=== PATIENT | female | born 1990 | race Caucasian/White ===

== ENCOUNTER 2018-10-23 05:45 | Emergency (ER) | payer MEDICAID ==
[~2018-10-23] VITALS: Ht 154.9 cm; Wt 78.0 kg
[2018-10-23] MEDS ORDERED: SODIUM CHLORIDE 0.9% 1,000 ML IV ONE (06:05)
[2018-10-23 06:32] LABS: CHLORIDE 107 mEq/L (98-107); HCG SCREEN NEGATIVE
[2018-10-23 06:36] LABS: ETHANOL BLOOD < 10 mg/dL
[2018-10-23 06:37] LABS: BASOPHILS % 0.8 % (0.0-2.0); EOSINOPHILS % 1.8 % (0.0-5.0); HEMATOCRIT. 44.3 % (36.0-48.0); HEMOGLOBIN. 14.8 g/dL (12.0-16.0); LYMPHOCYTES % 24.4 % (20.0-50.0); MEAN CORPUSCULAR HEMOGLOBIN 27.5 pg (28.0-32.0); MEAN CORPUSCULAR VOLUME 82.4 fL (81.0-99.0); MEAN PLATELET VOLUME 9.9 fl (7.4-10.4); MONOCYTES % 6.4 % (2.0-8.0); NEUTROPHILS % 66.6 % (40.0-76.0); PLATELET 217 x1000/uL (130-400); RED BLOOD CELL COUNT 5.38 mill/uL (4.2-5.4); RED CELL DISTRIBUTION WIDTH 14.3 % (11.6-14.6)
[2018-10-23 06:39] LABS: CREATINE KINASE 67 IU/L (26-192)
[2018-10-23 06:42] LABS: CREATINE KINASE MB FRACTION < 1.0 ng/mL (0.5-3.6)
[2018-10-23] MEDS ORDERED: MECLIZINE 25MG TABLET PO ONE (06:45)
[2018-10-23 08:14] LABS: CLARITY URINE CLEAR (CLEAR); COLOR URINE YELLOW (YELLOW); KETONES URINE NEGATIVE (NEGATIVE); LEUKOCYTE ESTERASE URINE NEGATIVE (NEGATIVE); NITRITE URINE NEGATIVE (NEGATIVE); OCCULT BLOOD URINE NEGATIVE (NEGATIVE); PH URINE 6.5 (4.5-8.0); PROTEIN URINE NEGATIVE (NEGATIVE); SPECIFIC GRAVITY URINE 1.003 (1.005-1.030); UROBILINOGEN URINE 0.2 E.U./dL (0.2-1.0)
[2018-10-23 08:30] LABS: *COCAINE SCREEN URINE NEGATIVE (NEGATIVE); METHADONE URINE SCREEN NEGATIVE (NEGATIVE); OPIATES URINE SCREEN NEGATIVE (NEGATIVE)
[2018-10-23 08:31] LABS: *AMPHETAMINES SCREEN URINE NEGATIVE (NEGATIVE); *BARBITURATES SCREEN URINE NEGATIVE (NEGATIVE); *BENZODIAZEPINES SCREEN URINE NEGATIVE (NEGATIVE); CANNABINOID URINE SCREEN NEGATIVE (NEGATIVE); PHENCYCLIDINE URINE SCREEN NEGATIVE (NEGATIVE)
[2018-10-23 09:25] VITALS: BP 120/80
== END 2018-10-23 09:37 | disposition home or self-care (01) ==
LOC: ER 05:45
DX: R42 Dizziness and giddiness (principal); R07.89 Other chest pain; J45.909 Unspecified asthma, uncomplicated
CPT/HCPCS: 36415; 71045; 80053; 80305; 80320; 81003; 81025; 82550; 82553; 83690; 83880; 84484; 84703; 85025; 93005; 96360; 99284; J7030; J8597; G0480

== ENCOUNTER 2018-10-28 15:16 | Emergency (ER) | payer MEDICAID ==
[~2018-10-28] VITALS: Ht 165.1 cm; Wt 81.0 kg
[2018-10-28] MEDS ORDERED: SODIUM CHLORIDE 0.9% 1,000 ML IV ONE (16:18)
[2018-10-28 16:37] LABS: BASOPHILS % 0.6 % (0.0-2.0); HEMATOCRIT. 39.6 % (36.0-48.0); HEMOGLOBIN. 13.3 g/dL (12.0-16.0); LYMPHOCYTES % 14.1 % (20.0-50.0); MEAN CORPUSCULAR HEMOGLOBIN 27.6 pg (28.0-32.0); MEAN CORPUSCULAR VOLUME 82.4 fL (81.0-99.0); MEAN PLATELET VOLUME 10.1 fl (7.4-10.4); MONOCYTES % 5.9 % (2.0-8.0); NEUTROPHILS % 78.4 % (40.0-76.0); PLATELET 212 x1000/uL (130-400); RED BLOOD CELL COUNT 4.81 mill/uL (4.2-5.4); RED CELL DISTRIBUTION WIDTH 14.2 % (11.6-14.6)
[2018-10-28 16:41] LABS: CHLORIDE 109 mEq/L (98-107)
[2018-10-28 18:00] VITALS: BP 109/65
== END 2018-10-28 18:07 | disposition home or self-care (01) ==
LOC: ER 15:27
DX: R07.89 Other chest pain (principal); E11.9 Type 2 diabetes mellitus without complications; J45.909 Unspecified asthma, uncomplicated
CPT/HCPCS: 36415; 71045; 80053; 81025; 84484; 85025; 93005; 96360; 99284; J7030

== ENCOUNTER 2018-11-11 18:45 | Emergency (ER) | payer MEDICAID ==
[~2018-11-11] VITALS: Ht 165.1 cm; Wt 76.0 kg
[2018-11-11] MEDS ORDERED: FAMOTIDINE 20MG/2ML VIAL IV ONE (19:15)
[2018-11-11 19:40] LABS: BASOPHILS % 0.9 % (0.0-2.0); EOSINOPHILS % 1.8 % (0.0-5.0); HEMATOCRIT. 39.3 % (36.0-48.0); HEMOGLOBIN. 13.5 g/dL (12.0-16.0); LYMPHOCYTES % 20.1 % (20.0-50.0); MEAN CORPUSCULAR VOLUME 81.4 fL (81.0-99.0); MEAN PLATELET VOLUME 9.6 fl (7.4-10.4); MONOCYTES % 5.6 % (2.0-8.0); NEUTROPHILS % 71.6 % (40.0-76.0); PLATELET 227 x1000/uL (130-400); RED BLOOD CELL COUNT 4.84 mill/uL (4.2-5.4); RED CELL DISTRIBUTION WIDTH 13.8 % (11.6-14.6)
[2018-11-11 19:47] LABS: CHLORIDE 107 mEq/L (98-107)
[2018-11-11 19:48] LABS: PARTIAL THROMBOPLASTIN TIME 28.2 sec (23.4-31.0); PROTHROMBIN TIME 10.4 sec (9.6-11.0)
[2018-11-11 20:01] LABS: HCG SCREEN NEGATIVE
[2018-11-11 20:33] LABS: CLARITY URINE CLOUDY (CLEAR); COLOR URINE YELLOW (YELLOW); KETONES URINE NEGATIVE (NEGATIVE); LEUKOCYTE ESTERASE URINE 2+ (NEGATIVE); NITRITE URINE NEGATIVE (NEGATIVE); OCCULT BLOOD URINE 3+ (NEGATIVE); PH URINE 8.5 (4.5-8.0); PROTEIN URINE NEGATIVE (NEGATIVE); SPECIFIC GRAVITY URINE 1.007 (1.005-1.030); UROBILINOGEN URINE 0.2 E.U./dL (0.2-1.0)
[2018-11-11 23:15] VITALS: BP 106/60
== END 2018-11-11 23:18 | disposition home or self-care (01) ==
LOC: ER 18:45
DX: R10.9 Unspecified abdominal pain (principal); R07.9 Chest pain, unspecified; N39.0 Urinary tract infection, site not specified; E11.9 Type 2 diabetes mellitus without complications; J45.909 Unspecified asthma, uncomplicated; Z88.5 Allergy status to narcotic agent; Z88.6 Allergy status to analgesic agent; Z87.11 Personal history of peptic ulcer disease; Z90.49 Acquired absence of other specified parts of digestive tract
CPT/HCPCS: 36415; 71045; 80053; 81003; 81025; 83690; 84703; 85025; 85610; 85730; 93005; 99284; J3490; Z7610; 96374

== ENCOUNTER 2018-11-14 23:28 | Emergency (ER) | payer MEDICAID ==
[~2018-11-14] VITALS: Ht 154.9 cm; Wt 75.0 kg
[2018-11-15] MEDS ORDERED: LORAZEPAM 1MG TABLET PO SCH (03:15)
[2018-11-15 03:27] LABS: CLARITY URINE CLOUDY (CLEAR); COLOR URINE YELLOW (YELLOW); KETONES URINE NEGATIVE (NEGATIVE); LEUKOCYTE ESTERASE URINE 2+ (NEGATIVE); NITRITE URINE NEGATIVE (NEGATIVE); OCCULT BLOOD URINE 3+ (NEGATIVE); PH URINE 8.5 (4.5-8.0); PROTEIN URINE NEGATIVE (NEGATIVE); SPECIFIC GRAVITY URINE 1.008 (1.005-1.030); UROBILINOGEN URINE 0.2 E.U./dL (0.2-1.0)
[2018-11-15 03:37] VITALS: BP 98/66
== END 2018-11-15 03:42 | disposition left against medical advice (07) ==
LOC: ER 23:28
DX: F41.9 Anxiety disorder, unspecified (principal); N39.0 Urinary tract infection, site not specified; J45.909 Unspecified asthma, uncomplicated; Z88.6 Allergy status to analgesic agent; Z88.5 Allergy status to narcotic agent; Z90.49 Acquired absence of other specified parts of digestive tract
CPT/HCPCS: 81025; 99283

== ENCOUNTER 2018-11-24 21:21 | Emergency (ER) | payer MEDICAID ==
[~2018-11-24] VITALS: Ht 154.9 cm; Wt 75.0 kg
[2018-11-24 22:46] LABS: BASOPHILS % 0.9 % (0.0-2.0); EOSINOPHILS % 2.3 % (0.0-5.0); HEMATOCRIT. 42.2 % (36.0-48.0); HEMOGLOBIN. 14.4 g/dL (12.0-16.0); LYMPHOCYTES % 29.5 % (20.0-50.0); MEAN CORPUSCULAR HEMOGLOBIN 27.8 pg (28.0-32.0); MEAN CORPUSCULAR VOLUME 81.3 fL (81.0-99.0); MEAN PLATELET VOLUME 9.6 fl (7.4-10.4); MONOCYTES % 7.1 % (2.0-8.0); NEUTROPHILS % 60.2 % (40.0-76.0); PLATELET 233 x1000/uL (130-400); RED BLOOD CELL COUNT 5.19 mill/uL (4.2-5.4); RED CELL DISTRIBUTION WIDTH 13.7 % (11.6-14.6)
[2018-11-24 22:52] LABS: CHLORIDE 108 mEq/L (98-107)
[2018-11-24] MEDS ORDERED: ACETAMINOPHEN 500MG TABLET PO ONE (23:15)
[2018-11-24 23:59] VITALS: BP 91/55
== END 2018-11-25 00:07 | disposition home or self-care (01) ==
LOC: ER 21:21
DX: R07.89 Other chest pain (principal); J45.909 Unspecified asthma, uncomplicated; Z88.5 Allergy status to narcotic agent; Z88.6 Allergy status to analgesic agent
CPT/HCPCS: 36415; 71045; 81025; 84484; 93005; 99284

== ENCOUNTER 2019-05-21 22:54 | Emergency (ER) | payer MEDICAID ==
[~2019-05-21] VITALS: Ht 154.9 cm; Wt 76.9 kg
[2019-05-22 03:40] LABS: BASOPHILS % 0.7 % (0.0-2.0); EOSINOPHILS % 2.1 % (0.0-5.0); HEMATOCRIT. 42.1 % (36.0-48.0); HEMOGLOBIN. 14.2 g/dL (12.0-16.0); LYMPHOCYTES % 32.1 % (20.0-50.0); MEAN CORPUSCULAR HEMOGLOBIN 27.6 pg (28.0-32.0); MEAN PLATELET VOLUME 9.8 fl (7.4-10.4); MONOCYTES % 7.1 % (2.0-8.0); PLATELET 247 x1000/uL (130-400); RED BLOOD CELL COUNT 5.13 mill/uL (4.2-5.4); RED CELL DISTRIBUTION WIDTH 13.2 % (11.6-14.6)
[2019-05-22 03:46] LABS: CHLORIDE 106 mEq/L (98-107)
[2019-05-22 03:49] LABS: CLARITY URINE CLOUDY (CLEAR); COLOR URINE YELLOW (YELLOW); KETONES URINE NEGATIVE (NEGATIVE); LEUKOCYTE ESTERASE URINE 2+ (NEGATIVE); NITRITE URINE NEGATIVE (NEGATIVE); OCCULT BLOOD URINE NEGATIVE (NEGATIVE); PROTEIN URINE NEGATIVE (NEGATIVE); UROBILINOGEN URINE 0.2 E.U./dL (0.2-1.0)
[2019-05-22 03:55] LABS: ETHANOL BLOOD < 10 mg/dL
[2019-05-22 06:53] VITALS: BP 105/58
== END 2019-05-22 07:05 | disposition home or self-care (01) ==
LOC: ER 23:43
DX: R42 Dizziness and giddiness (principal); R00.2 Palpitations; N39.0 Urinary tract infection, site not specified; H60.90 Unspecified otitis externa, unspecified ear; J45.909 Unspecified asthma, uncomplicated; Z90.49 Acquired absence of other specified parts of digestive tract; Z88.6 Allergy status to analgesic agent; Z88.5 Allergy status to narcotic agent
CPT/HCPCS: 36415; 80053; 80320; 81003; 81025; 82962; 85025; 93005; 99284; Z7610; G0480

== ENCOUNTER 2021-07-12 19:34 | Emergency (ER) | payer MEDICAID ==
[~2021-07-12] VITALS: Ht 154.9 cm; Wt 80.0 kg
[2021-07-12 23:34] LABS: BASOPHILS % 0.7 % (0.0-2.0); EOSINOPHILS % 1.9 % (0.0-5.0); HEMATOCRIT. 39.6 % (36.0-48.0); HEMOGLOBIN. 13.2 g/dL (12.0-16.0); LYMPHOCYTES % 24.2 % (20.0-50.0); MEAN CORPUSCULAR HEMOGLOBIN 26.7 pg (28.0-32.0); MEAN CORPUSCULAR VOLUME 80.5 fL (81.0-99.0); NEUTROPHILS % 67.2 % (40.0-76.0); PLATELET 229 x1000/uL (130-400); RED BLOOD CELL COUNT 4.92 mill/uL (4.2-5.4); RED CELL DISTRIBUTION WIDTH 14.8 % (11.6-14.6)
[2021-07-12 23:38] LABS: CHLORIDE 106 mEq/L (98-107)
[2021-07-13 00:02] LABS: HCG SCREEN NEGATIVE
[2021-07-13] MEDS ORDERED: IBUPROFEN 600MG TABLET PO ONE (00:15)
[2021-07-13 00:40] VITALS: BP 102/67
== END 2021-07-13 00:42 | disposition home or self-care (01) ==
LOC: ER 19:34
DX: R07.89 Other chest pain (principal); J45.909 Unspecified asthma, uncomplicated; Z88.6 Allergy status to analgesic agent; Z90.49 Acquired absence of other specified parts of digestive tract
CPT/HCPCS: 36415; 71045; 80053; 84703; 85025; 93005; 99285

== ENCOUNTER 2021-09-25 16:45 | Emergency (ER) | payer MEDICAID ==
[~2021-09-25] VITALS: Ht 154.9 cm; Wt 76.0 kg
[2021-09-25] MEDS ORDERED: TETANUS, DIPHTHERIA, PERTUSSIS VAC/PF 0.5ML (>10YR OLD) IM ONE (19:45)
[2021-09-25] MEDS ORDERED: LIDOCAINE HCL/EPINEPHRINE 1%-EPI 1:100,000 30 ML VIAL INFIL ONE (19:45)
[2021-09-25] MEDS ORDERED: LIDOCAINE HCL/EPINEPHRINE 1%-EPI 1:100,000 10 ML VIAL INFIL NR (20:00)
[2021-09-25 20:08] VITALS: BP 131/86
== END 2021-09-25 20:10 | disposition home or self-care (01) ==
LOC: ER 16:45
DX: S51.812A Laceration without foreign body of left forearm, initial encounter (principal); J45.909 Unspecified asthma, uncomplicated; Z88.6 Allergy status to analgesic agent; Z90.49 Acquired absence of other specified parts of digestive tract; W25.XXXA Contact with sharp glass, initial encounter; Y93.89 Activity, other specified; Y92.89 Other specified places as the place of occurrence of the external cause; Y99.8 Other external cause status
CPT/HCPCS: 12002; 90471; 90715; 99283

== ENCOUNTER 2021-10-06 23:00 | Emergency (ER) | payer MEDICAID ==
[~2021-10-06] VITALS: Ht 154.9 cm; Wt 74.0 kg
[2021-10-07 01:20] VITALS: BP 102/59
== END 2021-10-07 00:25 | disposition home or self-care (01) ==
LOC: ER 23:00
DX: S51.812D Laceration without foreign body of left forearm, subsequent encounter (principal); X58.XXXD Exposure to other specified factors, subsequent encounter; J45.909 Unspecified asthma, uncomplicated; Z90.49 Acquired absence of other specified parts of digestive tract; Z88.6 Allergy status to analgesic agent
CPT/HCPCS: 99281

== ENCOUNTER 2022-05-02 02:56 | Emergency (ER) | payer MEDICAID ==
[~2022-05-02] VITALS: Ht 154.9 cm; Wt 76.5 kg
[2022-05-02] MEDS ORDERED: ACETAMINOPHEN WITH CODEINE 300/30MG TABLET PO STA (04:09)
[2022-05-02] MEDS ORDERED: ONDANSETRON 4MG ODT PO STA (04:09)
[2022-05-02 04:18] VITALS: BP 114/47
[2022-05-02 05:10] LABS: BASOPHILS % 0.7 % (0.0-2.0); EOSINOPHILS % 2.7 % (0.0-5.0); HEMATOCRIT. 40.8 % (36.0-48.0); HEMOGLOBIN. 13.4 g/dL (12.0-16.0); LYMPHOCYTES % 25.9 % (20.0-50.0); MEAN CORPUSCULAR HEMOGLOBIN 26.8 pg (28.0-32.0); MEAN CORPUSCULAR VOLUME 81.4 fL (81.0-99.0); MEAN PLATELET VOLUME 9.6 fl (7.4-10.4); NEUTROPHILS % 63.7 % (40.0-76.0); PLATELET 227 x1000/uL (130-400); RED BLOOD CELL COUNT 5.01 mill/uL (4.2-5.4); RED CELL DISTRIBUTION WIDTH 14.4 % (11.6-14.6)
[2022-05-02 05:19] LABS: CHLORIDE 106 mEq/L (98-107)
[2022-05-02] MEDS ORDERED: PANT40SU MT (05:37)
== END 2022-05-02 06:10 | disposition home or self-care (01) ==
LOC: ER 02:56
DX: R10.13 Epigastric pain (principal); J45.909 Unspecified asthma, uncomplicated; Z88.6 Allergy status to analgesic agent; Z90.49 Acquired absence of other specified parts of digestive tract
CPT/HCPCS: 36415; 80053; 85025; 93005; 99284; Q0162

== ENCOUNTER 2022-05-31 15:34 | Emergency (ER) | payer MEDICAID ==
[~2022-05-31] VITALS: Ht 167.6 cm; Wt 73.0 kg
[~2022-05-31 15:34] MED LIST: PANT40SU MT
[2022-05-31] MEDS ORDERED: LANS30CA55 MT (19:41)
[2022-05-31] MEDS ORDERED: CLAR-44 MT (19:41)
[2022-05-31] MEDS ORDERED: AMOX-494 MT (19:41)
[2022-05-31 19:45] VITALS: BP 112/78
== END 2022-05-31 20:47 | disposition home or self-care (01) ==
LOC: ER 15:34
DX: R10.13 Epigastric pain (principal); R53.1 Weakness; R42 Dizziness and giddiness; J45.909 Unspecified asthma, uncomplicated; Z90.49 Acquired absence of other specified parts of digestive tract
CPT/HCPCS: 81025; 99283

== ENCOUNTER 2023-06-13 18:57 | Emergency (ER) | payer MEDICAID ==
[~2023-06-13] VITALS: Ht 162.6 cm; Wt 91.0 kg
[~2023-06-13 18:57] MED LIST changes: +AMOX-494 MT; +CLAR-44 MT; +LANS30CA55 MT
[2023-06-13 19:07] VITALS: BP 102/66; PULSE 72; RESP 18; TEMP 98.8; O2SAT 99
[2023-06-13] MEDS ORDERED: MAGNESIUM/ALUMINUM HYDROXIDE/SIMETHICONE 30ML UDC PO ONE (20:45)
[2023-06-13] MEDS ORDERED: FLUC150T46 PO (20:53)
[2023-06-13] MEDS ORDERED: NYST15CR37 PO (20:53)
[2023-06-13 21:01] LABS: BASOPHILS % 0.6 % (0.0-2.0); EOSINOPHILS % 1.8 % (0.0-5.0); HEMATOCRIT. 39.3 % (36.0-48.0); HEMOGLOBIN. 13.3 g/dL (12.0-16.0); LYMPHOCYTES % 30.9 % (20.0-50.0); MEAN CORPUSCULAR HEMOGLOBIN 27.7 pg (28.0-32.0); MEAN CORPUSCULAR VOLUME 81.5 fL (81.0-99.0); MEAN PLATELET VOLUME 9.2 fl (7.4-10.4); MONOCYTES % 7.5 % (2.0-8.0); NEUTROPHILS % 59.2 % (40.0-76.0); PLATELET 229 x1000/uL (130-400); RED BLOOD CELL COUNT 4.82 mill/uL (4.2-5.4); RED CELL DISTRIBUTION WIDTH 13.8 % (11.6-14.6); WHITE BLOOD COUNT 9.7 x1000/uL (4.5-11.0)
[2023-06-13 21:24] LABS: CHLORIDE 109 mEq/L (98-107); INDEX HEMOLYSI 1 (1-3); INDEX ICTERIC 1 (1-4); INDEX LIPEMIC 1 (1-3); POTASSIUM 3.5 mEq/L (3.5-5.1); SODIUM 139 mEq/L (136-145)
[2023-06-13 21:32] LABS: ALANINE AMINOTRANSFERASE 20 IU/L (13-61); ALBUMIN 3.4 g/dL (3.4-5.0); ASPARTATE AMINOTRANSFERASE 9 IU/L (15-37); BILIRUBIN TOTAL 0.7 mg/dL (0.1-1.0); CALCIUM 9.3 mg/dL (8.5-10.1); CARBON DIOXIDE 27 mEq/L (21-32); CREATININE 0.5 mg/dL (0.6-1.3); GLUCOSE 89 mg/dL (70-105); PROTEIN TOTAL 7.5 g/dL (6.0-8.3); UREA NITROGEN BLOOD 5 mg/dL (7-21)
[2023-06-13] MEDS ORDERED: FLUT9.9S BOTHNSTRLS (22:09)
== END 2023-06-13 22:16 | disposition home or self-care (01) ==
LOC: ER 18:57
DX: B37.31 Acute candidiasis of vulva and vagina (principal); J45.909 Unspecified asthma, uncomplicated; Z88.6 Allergy status to analgesic agent; Z90.49 Acquired absence of other specified parts of digestive tract
CPT/HCPCS: 36415; 80053; 85025; 99283

== ENCOUNTER 2023-06-30 18:46 | Emergency (ER) | payer MEDICAID ==
[~2023-06-30] VITALS: Ht 167.6 cm; Wt 74.0 kg
[~2023-06-30 18:46] MED LIST changes: +FLUC150T46 PO; +FLUT9.9S BOTHNSTRLS; +NYST15CR37 PO
[2023-06-30] MEDS ORDERED: TOPUD MT (19:06)
[2023-06-30] MEDS ORDERED: TAM75 MT (19:06)
[2023-06-30 19:10] VITALS: BP 124/82; PULSE 81; RESP 18; TEMP 99.3; O2SAT 99
== END 2023-06-30 19:15 | disposition home or self-care (01) ==
LOC: ER 18:46
DX: J10.1 Influenza due to other identified influenza virus with other respiratory manifestations (principal); U07.1 COVID-19; J45.909 Unspecified asthma, uncomplicated
CPT/HCPCS: 99283

== ENCOUNTER 2023-07-09 14:14 | Emergency (ER) | payer MEDICAID ==
[~2023-07-09] VITALS: Ht 154.9 cm; Wt 72.6 kg
[~2023-07-09 14:14] MED LIST changes: +TAM75 MT; +TOPUD MT
[2023-07-09 14:28] VITALS: BP 111/59; PULSE 79; RESP 16; TEMP 98.7; O2SAT 99
== END 2023-07-09 16:56 | disposition left against medical advice (07) ==
LOC: ER 14:14
DX: Z53.21 Procedure and treatment not carried out due to patient leaving prior to being seen by health care provider (principal)
CPT/HCPCS: 99281

== ENCOUNTER 2023-08-11 17:27 | Emergency (ER) | payer MEDICAID ==
[~2023-08-11] VITALS: Ht 167.6 cm; Wt 77.0 kg
[2023-08-11 17:32] VITALS: TEMP 98.1; O2SAT 99
[2023-08-11] MEDS ORDERED: EPIN0.3P3 IM (20:12)
[2023-08-11] MEDS ORDERED: FAMOTIDINE 20MG TABLET PO ONE (20:15)
[2023-08-11] MEDS ORDERED: DEXAMETHASONE 10 MG/ML VIAL IM ONE (20:15)
[2023-08-11 21:35] VITALS: BP 117/73; PULSE 60; RESP 18
== END 2023-08-11 21:37 | disposition home or self-care (01) ==
LOC: ER 17:36
DX: T78.40XA Allergy, unspecified, initial encounter (principal); L50.9 Urticaria, unspecified; R09.89 Other specified symptoms and signs involving the circulatory and respiratory systems; J45.909 Unspecified asthma, uncomplicated; Z79.899 Other long term (current) drug therapy; X58.XXXA Exposure to other specified factors, initial encounter
CPT/HCPCS: 96372; 99283; J1100; Z7610

== ENCOUNTER 2023-10-17 03:15 | Emergency (ER) | payer MEDICAID ==
[~2023-10-17] VITALS: Ht 154.9 cm; Wt 72.0 kg
[~2023-10-17 03:15] MED LIST changes: +EPIN0.3P3 IM
[2023-10-17 03:39] VITALS: BP 99/56; PULSE 80; RESP 17; TEMP 98.2; O2SAT 99
== END 2023-10-17 04:12 | disposition left against medical advice (07) ==
LOC: ER 03:20
DX: H92.01 Otalgia, right ear (principal); Z53.21 Procedure and treatment not carried out due to patient leaving prior to being seen by health care provider
CPT/HCPCS: 99281

== ENCOUNTER 2023-11-23 10:56 | Emergency (ER) | payer MEDICAID ==
[~2023-11-23] VITALS: Ht 154.9 cm; Wt 73.0 kg
[2023-11-23 10:59] VITALS: O2SAT 99
[2023-11-23] MEDS: CEFTRIAXONE SODIUM 500MG VIAL IM ONE (11:20)
[2023-11-23 11:22] LABS: CLARITY URINE CLOUDY (CLEAR); COLOR URINE YELLOW (YELLOW); GLUCOSE URINE NEGATIVE (NEGATIVE); KETONES URINE NEGATIVE (NEGATIVE); LEUKOCYTE ESTERASE URINE 3+ (NEGATIVE); NITRITE URINE NEGATIVE (NEGATIVE); OCCULT BLOOD URINE NEGATIVE (NEGATIVE); PH URINE 5.5 (4.5-8.0); PROTEIN URINE NEGATIVE (NEGATIVE); SPECIFIC GRAVITY URINE 1.017 (1.005-1.030); UROBILINOGEN URINE 0.2 E.U./dL (0.2-1.0)
[2023-11-23 11:30] VITALS: BP 112/66; PULSE 69; RESP 19; TEMP 98.5
[2023-11-23 11:38] LABS: BACTERIA URINE 2+; SQUAMOUS EPITHELIAL CELL URINE 2+ /lpf (RARE/1+); YEAST URINE NONE SEEN
[2023-11-23] MEDS ORDERED: DOXY-244 MT (11:52)
[2023-11-23] MEDS ORDERED: METR-167 MT (11:52)
[2023-11-23] MEDS ORDERED: CLIN-194 MT (12:38)
[2023-11-25 19:10] LABS: CHLAMYDIA TRACHOMATIS NAA Positive (Negative); NEISSERIA GONORRHOEAE NAA Negative (Negative)
== END 2023-11-23 14:58 | disposition home or self-care (01) ==
LOC: ER 10:56
DX: N73.9 Female pelvic inflammatory disease, unspecified (principal); J45.909 Unspecified asthma, uncomplicated; Z90.49 Acquired absence of other specified parts of digestive tract; Z79.899 Other long term (current) drug therapy
CPT/HCPCS: 87491; 87591; 81003; 81025; 96372; 99283; J0696; Z7610

== ENCOUNTER 2023-11-24 14:39 | Emergency (ER) | payer MEDICAID ==
[~2023-11-24] VITALS: Ht 154.9 cm; Wt 73.0 kg
[~2023-11-24 14:39] MED LIST changes: +CLIN-194 MT; +DOXY-244 MT
[2023-11-24 14:41] VITALS: BP 101/59; PULSE 68; RESP 16; TEMP 98.7; O2SAT 99
[2023-11-24 17:22] LABS: BASOPHILS % 0.6 % (0.0-2.0); EOSINOPHILS % 1.6 % (0.0-5.0); HEMATOCRIT. 41.2 % (36.0-48.0); HEMOGLOBIN. 13.8 g/dL (12.0-16.0); LYMPHOCYTES % 23.1 % (20.0-50.0); MEAN CORPUSCULAR HEMOGLOBIN 28.1 pg (28.0-32.0); MEAN CORPUSCULAR HGB CONC 33.4 g/dL (31.0-37.0); MEAN CORPUSCULAR VOLUME 84.2 fL (81.0-99.0); MEAN PLATELET VOLUME 9.2 fl (7.4-10.4); MONOCYTES % 5.4 % (2.0-8.0); NEUTROPHILS % 69.3 % (40.0-76.0); PLATELET 256 x1000/uL (130-400); RED BLOOD CELL COUNT 4.89 mill/uL (4.2-5.4); RED CELL DISTRIBUTION WIDTH 13.4 % (11.6-14.6); WHITE BLOOD COUNT 9.9 x1000/uL (4.5-11.0)
[2023-11-24 17:30] LABS: CHLORIDE 106 mEq/L (98-107); POTASSIUM 3.9 mEq/L (3.5-5.1); SODIUM 136 mEq/L (136-145)
[2023-11-24 17:31] LABS: CARBON DIOXIDE 24 mEq/L (21-32)
[2023-11-24 17:32] LABS: CALCIUM 8.2 mg/dL (8.7-10.4)
[2023-11-24 17:34] LABS: HCG SCREEN NEGATIVE
[2023-11-24 17:36] LABS: CREATININE 0.6 mg/dL (0.6-1.0); GLUCOSE 91 mg/dL (70-105); UREA NITROGEN BLOOD 5 mg/dL (9-23)
[2023-11-24 17:38] LABS: ALANINE AMINOTRANSFERASE 15 IU/L (10-49); ASPARTATE AMINOTRANSFERASE 24 IU/L (<34)
[2023-11-24 17:39] LABS: BILIRUBIN TOTAL 0.4 mg/dL (0.1-1.0); PROTEIN TOTAL 6.8 g/dL (6.0-8.3)
== END 2023-11-24 17:03 | disposition home or self-care (01) ==
LOC: ER 14:39
DX: R07.89 Other chest pain (principal); R42 Dizziness and giddiness; J45.909 Unspecified asthma, uncomplicated; Z90.49 Acquired absence of other specified parts of digestive tract; Z88.8 Allergy status to other drugs, medicaments and biological substances; Z88.6 Allergy status to analgesic agent; Z88.5 Allergy status to narcotic agent
CPT/HCPCS: 36415; 71045; 80053; 84703; 85025; 93005; 99285

== ENCOUNTER 2024-01-09 20:32 | Emergency (ER) | payer MEDICAID ==
[~2024-01-09] VITALS: Ht 154.9 cm; Wt 76.0 kg
[2024-01-09 20:54] VITALS: BP 101/57; PULSE 78; RESP 16; TEMP 98.6; O2SAT 100
[2024-01-09] MEDS ORDERED: AZITHROMYCIN 250 MG TABLET PO SCH (22:00)
[2024-01-09 22:22] LABS: CLARITY URINE CLEAR (CLEAR); COLOR URINE YELLOW (YELLOW); GLUCOSE URINE NEGATIVE (NEGATIVE); KETONES URINE NEGATIVE (NEGATIVE); LEUKOCYTE ESTERASE URINE NEGATIVE (NEGATIVE); NITRITE URINE NEGATIVE (NEGATIVE); OCCULT BLOOD URINE NEGATIVE (NEGATIVE); PH URINE 6.5 (4.5-8.0); PROTEIN URINE NEGATIVE (NEGATIVE); SPECIFIC GRAVITY URINE 1.011 (1.005-1.030); UROBILINOGEN URINE 0.2 E.U./dL (0.2-1.0)
[2024-01-09] MEDS: AZITHROMYCIN 500 MG TABLET PO NR (22:41)
[2024-01-09] MEDS ORDERED: AMOX1TAB16 MT (22:58)
== END 2024-01-09 23:42 | disposition home or self-care (01) ==
LOC: ER 20:32
DX: N76.0 Acute vaginitis (principal); A74.9 Chlamydial infection, unspecified; J45.909 Unspecified asthma, uncomplicated; Z90.49 Acquired absence of other specified parts of digestive tract
CPT/HCPCS: 81003; 81025; 87210; 87491; 87591; 99284

== ENCOUNTER 2024-01-23 10:28 | Emergency (ER) | payer MEDICAID ==
[~2024-01-23] VITALS: Ht 154.9 cm; Wt 74.0 kg
[~2024-01-23 10:28] MED LIST changes: +AMOX1TAB16 MT
[2024-01-23 10:32] VITALS: TEMP 98; O2SAT 99
[2024-01-23] MEDS: ACETAMINOPHEN 500MG TABLET PO ONE (12:00)
[2024-01-23 12:33] LABS: CLARITY URINE TURBID (CLEAR); COLOR URINE YELLOW (YELLOW); GLUCOSE URINE NEGATIVE (NEGATIVE); KETONES URINE NEGATIVE (NEGATIVE); LEUKOCYTE ESTERASE URINE 2+ (NEGATIVE); NITRITE URINE NEGATIVE (NEGATIVE); OCCULT BLOOD URINE NEGATIVE (NEGATIVE); PROTEIN URINE NEGATIVE (NEGATIVE); SPECIFIC GRAVITY URINE 1.019 (1.005-1.030); UROBILINOGEN URINE 0.2 E.U./dL (0.2-1.0)
[2024-01-23 12:56] LABS: BACTERIA URINE 3+; RBC URINE 0-2 /hpf (0-2); SQUAMOUS EPITHELIAL CELL URINE 2+ /lpf (RARE/1+); YEAST URINE NONE SEEN
[2024-01-23] MEDS ORDERED: ACET-2708 MT (13:12)
[2024-01-23] MEDS ORDERED: NITR-87 MT (13:12)
[2024-01-23 14:30] VITALS: BP 112/64; PULSE 59; RESP 14
== END 2024-01-23 14:31 | disposition home or self-care (01) ==
LOC: ER 10:28
DX: N39.0 Urinary tract infection, site not specified (principal); J45.909 Unspecified asthma, uncomplicated; Z88.1 Allergy status to other antibiotic agents; Z88.6 Allergy status to analgesic agent; Z79.899 Other long term (current) drug therapy; Z88.5 Allergy status to narcotic agent; Z90.49 Acquired absence of other specified parts of digestive tract
CPT/HCPCS: 76830; 76856; 81003; 81025; 99284

== ENCOUNTER 2024-01-26 02:25 | Emergency (ER) | payer MEDICAID ==
[~2024-01-26] VITALS: Ht 154.9 cm; Wt 75.0 kg
[~2024-01-26 02:25] MED LIST changes: +ACET-2708 MT; +NITR-87 MT
[2024-01-26 03:01] VITALS: O2SAT 99
[2024-01-26 03:20] LABS: CLARITY URINE CLEAR (CLEAR); COLOR URINE YELLOW (YELLOW); GLUCOSE URINE NEGATIVE (NEGATIVE); KETONES URINE NEGATIVE (NEGATIVE); LEUKOCYTE ESTERASE URINE NEGATIVE (NEGATIVE); NITRITE URINE NEGATIVE (NEGATIVE); OCCULT BLOOD URINE NEGATIVE (NEGATIVE); PROTEIN URINE NEGATIVE (NEGATIVE); SPECIFIC GRAVITY URINE 1.003 (1.005-1.030); UROBILINOGEN URINE 0.2 E.U./dL (0.2-1.0)
[2024-01-26] MEDS: CEFTRIAXONE SODIUM 500MG VIAL IM NR (03:45)
[2024-01-26 05:20] VITALS: BP 135/66; PULSE 76; RESP 18; TEMP 98.5
[2024-01-28 17:07] LABS: CHLAMYDIA TRACHOMATIS NAA Negative (Negative); NEISSERIA GONORRHOEAE NAA Negative (Negative)
== END 2024-01-26 05:32 | disposition home or self-care (01) ==
LOC: ER 02:25
DX: Z11.3 Encounter for screening for infections with a predominantly sexual mode of transmission (principal); Z90.49 Acquired absence of other specified parts of digestive tract; Z88.8 Allergy status to other drugs, medicaments and biological substances
CPT/HCPCS: 99284; 86592; 87491; 87591; 81003; 87210; 36415; 96372; J0696

== ENCOUNTER 2024-01-28 10:40 | Emergency (ER) | payer MEDICAID ==
[~2024-01-28] VITALS: Ht 162.6 cm; Wt 81.0 kg
[2024-01-28 10:55] VITALS: O2SAT 100
[2024-01-28] MEDS ORDERED: AMOX1TAB16 MT (14:49)
[2024-01-28] MEDS ORDERED: OFLO5DRO4 EACH EAR (14:49)
[2024-01-28] MEDS ORDERED: CARB15DR63 EACH EAR (14:49)
[2024-01-28 15:18] VITALS: BP 124/74; PULSE 71; RESP 18; TEMP 98.4
== END 2024-01-28 15:19 | disposition home or self-care (01) ==
LOC: ER 11:44
DX: H61.21 Impacted cerumen, right ear (principal); H60.91 Unspecified otitis externa, right ear; Z88.6 Allergy status to analgesic agent; Z88.1 Allergy status to other antibiotic agents; Z88.5 Allergy status to narcotic agent; Z79.899 Other long term (current) drug therapy
CPT/HCPCS: 81025; 70480; 99284; Z7610

== ENCOUNTER 2024-03-14 12:19 | Emergency (ER) | payer MEDICAID ==
[~2024-03-14] VITALS: Ht 157.5 cm; Wt 73.0 kg
[~2024-03-14 12:19] MED LIST changes: +CARB15DR63 EACH EAR; +OFLO5DRO4 EACH EAR
[2024-03-14 12:26] VITALS: BP 113/65; PULSE 72; RESP 20; TEMP 98.6; O2SAT 97
[2024-03-14 13:39] LABS: CLARITY URINE CLEAR (CLEAR); COLOR URINE YELLOW (YELLOW); GLUCOSE URINE NEGATIVE (NEGATIVE); KETONES URINE NEGATIVE (NEGATIVE); LEUKOCYTE ESTERASE URINE NEGATIVE (NEGATIVE); NITRITE URINE NEGATIVE (NEGATIVE); OCCULT BLOOD URINE NEGATIVE (NEGATIVE); PROTEIN URINE NEGATIVE (NEGATIVE); SPECIFIC GRAVITY URINE 1.005 (1.005-1.030); UROBILINOGEN URINE 0.2 E.U./dL (0.2-1.0)
[2024-03-14 13:55] LABS: BASOPHILS % 0.8 % (0.0-2.0); EOSINOPHILS % 1.3 % (0.0-5.0); HEMOGLOBIN. 13.2 g/dL (12.0-16.0); LYMPHOCYTES % 19.6 % (20.0-50.0); MEAN CORPUSCULAR HEMOGLOBIN 27.2 pg (28.0-32.0); MEAN CORPUSCULAR VOLUME 82.5 fL (81.0-99.0); MEAN PLATELET VOLUME 9.3 fl (7.4-10.4); MONOCYTES % 6.8 % (2.0-8.0); NEUTROPHILS % 71.5 % (40.0-76.0); PLATELET 245 x1000/uL (130-400); RED BLOOD CELL COUNT 4.85 mill/uL (4.2-5.4); RED CELL DISTRIBUTION WIDTH 13.3 % (11.6-14.6); WHITE BLOOD COUNT 8.2 x1000/uL (4.5-11.0)
[2024-03-14 14:02] LABS: CHLORIDE 105 mEq/L (98-107); POTASSIUM 3.9 mEq/L (3.5-5.1); SODIUM 137 mEq/L (136-145)
[2024-03-14 14:03] LABS: CALCIUM 9.2 mg/dL (8.7-10.4); CARBON DIOXIDE 27 mEq/L (21-32)
[2024-03-14 14:08] LABS: CREATININE 0.5 mg/dL (0.6-1.0); GLUCOSE 96 mg/dL (70-105); UREA NITROGEN BLOOD 6 mg/dL (9-23)
[2024-03-14 14:25] LABS: TROPONIN I HIGH SENSITIVITY < 4 ng/L (3.0-34)
== END 2024-03-14 16:04 | disposition home or self-care (01) ==
LOC: ER 12:19
DX: R00.2 Palpitations (principal); R20.2 Paresthesia of skin; J45.909 Unspecified asthma, uncomplicated; Z90.49 Acquired absence of other specified parts of digestive tract; Z88.8 Allergy status to other drugs, medicaments and biological substances; Z88.6 Allergy status to analgesic agent; Z79.899 Other long term (current) drug therapy
CPT/HCPCS: 36415; 71045; 80048; 81003; 81025; 83880; 84484; 85025; 93005; 99284; 99285

== ENCOUNTER 2024-04-01 23:35 | Emergency (ER) | payer MEDICAID ==
[~2024-04-01] VITALS: Ht 154.9 cm; Wt 75.0 kg
[2024-04-01 23:39] VITALS: TEMP 98.4; O2SAT 99
[2024-04-02] MEDS ORDERED: OFLO5DRO4 LEFT EAR (00:07)
[2024-04-02] MEDS: MECLIZINE 12.5MG TABLET PO ONE (00:36)
[2024-04-02 00:40] VITALS: BP 128/52; PULSE 62; RESP 16; O2SAT 99
== END 2024-04-02 00:41 | disposition home or self-care (01) ==
LOC: ER 23:35
DX: H60.91 Unspecified otitis externa, right ear (principal); R42 Dizziness and giddiness; J45.909 Unspecified asthma, uncomplicated; Z90.49 Acquired absence of other specified parts of digestive tract; Z79.899 Other long term (current) drug therapy
CPT/HCPCS: 99283; J8597

== ENCOUNTER 2024-04-15 04:59 | Emergency (ER) | payer MEDICAID ==
[~2024-04-15] VITALS: Ht 154.9 cm; Wt 81.0 kg
[~2024-04-15 04:59] MED LIST changes: +OFLO5DRO4 LEFT EAR
[2024-04-15 05:17] VITALS: BP 100/64; TEMP 98.2; O2SAT 99
[2024-04-15 05:18] VITALS: PULSE 68; RESP 18; O2SAT 100
[2024-04-15 07:00] LABS: BASOPHILS % 0.8 % (0.0-2.0); EOSINOPHILS % 2.3 % (0.0-5.0); HCG SCREEN NEGATIVE; HEMATOCRIT. 39.9 % (36.0-48.0); HEMOGLOBIN. 13.4 g/dL (12.0-16.0); LYMPHOCYTES % 22.9 % (20.0-50.0); MEAN CORPUSCULAR HEMOGLOBIN 27.3 pg (28.0-32.0); MEAN CORPUSCULAR HGB CONC 33.6 g/dL (31.0-37.0); MEAN CORPUSCULAR VOLUME 81.2 fL (81.0-99.0); MEAN PLATELET VOLUME 9.4 fl (7.4-10.4); MONOCYTES % 6.1 % (2.0-8.0); NEUTROPHILS % 67.9 % (40.0-76.0); PLATELET 256 x1000/uL (130-400); RED BLOOD CELL COUNT 4.91 mill/uL (4.2-5.4); RED CELL DISTRIBUTION WIDTH 13.9 % (11.6-14.6); WHITE BLOOD COUNT 8.3 x1000/uL (4.5-11.0)
[2024-04-15 07:01] LABS: CHLORIDE 106 mEq/L (98-107); POTASSIUM 3.9 mEq/L (3.5-5.1); SODIUM 137 mEq/L (136-145)
[2024-04-15 07:02] LABS: CALCIUM 9.1 mg/dL (8.7-10.4); CARBON DIOXIDE 25 mEq/L (21-32)
[2024-04-15 07:07] LABS: CREATININE 0.6 mg/dL (0.6-1.0); GLUCOSE 95 mg/dL (70-105); UREA NITROGEN BLOOD 6 mg/dL (9-23)
== END 2024-04-15 08:11 | disposition left against medical advice (07) ==
LOC: ER 04:59 → CANBEDREQ 08:10 → ER 08:11
DX: R07.89 Other chest pain (principal); J45.909 Unspecified asthma, uncomplicated; Z79.899 Other long term (current) drug therapy; Z88.6 Allergy status to analgesic agent
CPT/HCPCS: 36415; 71045; 80048; 83880; 84703; 85025; 93005; 99285

== ENCOUNTER 2024-04-22 14:54 | Emergency (ER) | payer MEDICAID ==
[~2024-04-22] VITALS: Ht 154.9 cm; Wt 73.0 kg
[2024-04-22 15:00] VITALS: O2SAT 100
[2024-04-22 15:05] VITALS: BP 106/44; PULSE 69; TEMP 98.5; O2SAT 98
[2024-04-22 15:49] LABS: CLARITY URINE CLEAR (CLEAR); COLOR URINE YELLOW (YELLOW); GLUCOSE URINE NEGATIVE (NEGATIVE); KETONES URINE NEGATIVE (NEGATIVE); LEUKOCYTE ESTERASE URINE NEGATIVE (NEGATIVE); NITRITE URINE NEGATIVE (NEGATIVE); OCCULT BLOOD URINE NEGATIVE (NEGATIVE); PH URINE 5.5 (4.5-8.0); PROTEIN URINE NEGATIVE (NEGATIVE); SPECIFIC GRAVITY URINE 1.025 (1.005-1.030); UROBILINOGEN URINE 0.2 E.U./dL (0.2-1.0)
[2024-04-22 16:15] LABS: BASOPHILS % 0.7 % (0.0-2.0); EOSINOPHILS % 2.4 % (0.0-5.0); HEMATOCRIT. 40.8 % (36.0-48.0); HEMOGLOBIN. 13.6 g/dL (12.0-16.0); LYMPHOCYTES % 26.2 % (20.0-50.0); MEAN CORPUSCULAR HEMOGLOBIN 27.4 pg (28.0-32.0); MEAN CORPUSCULAR HGB CONC 33.4 g/dL (31.0-37.0); MEAN CORPUSCULAR VOLUME 82.1 fL (81.0-99.0); MEAN PLATELET VOLUME 9.5 fl (7.4-10.4); NEUTROPHILS % 63.7 % (40.0-76.0); PLATELET 264 x1000/uL (130-400); RED BLOOD CELL COUNT 4.97 mill/uL (4.2-5.4); RED CELL DISTRIBUTION WIDTH 13.9 % (11.6-14.6); WHITE BLOOD COUNT 7.5 x1000/uL (4.5-11.0)
[2024-04-22 16:19] LABS: HCG SCREEN NEGATIVE
[2024-04-22 16:22] LABS: CARBON DIOXIDE 26 mEq/L (21-32); CHLORIDE 105 mEq/L (98-107); POTASSIUM 3.7 mEq/L (3.5-5.1); SODIUM 137 mEq/L (136-145)
[2024-04-22 16:23] LABS: CALCIUM 9.4 mg/dL (8.7-10.4)
[2024-04-22 16:27] LABS: CREATININE 0.6 mg/dL (0.6-1.0)
[2024-04-22 16:28] LABS: GLUCOSE 93 mg/dL (70-105)
[2024-04-22 16:29] LABS: ALANINE AMINOTRANSFERASE 41 IU/L (10-49); ALBUMIN 4.3 g/dL (3.2-4.8); ASPARTATE AMINOTRANSFERASE 31 IU/L (<34)
[2024-04-22 16:30] LABS: BILIRUBIN DIRECT < 0.1 mg/dL (<=3.0); BILIRUBIN TOTAL 0.2 mg/dL (0.1-1.0); PROTEIN TOTAL 7.3 g/dL (6.0-8.3); UREA NITROGEN BLOOD < 5 mg/dL (9-23)
[2024-04-22] MEDS: MAGNESIUM/ALUMINUM HYDROXIDE/SIMETHICONE 30ML UDC PO ONE (17:37)
[2024-04-22] MEDS: FAMOTIDINE 20MG TABLET PO ONE (17:37)
[2024-04-22] MEDS ORDERED: MAG355OR21 MT (17:55)
[2024-04-22] MEDS ORDERED: FAMO-135 MT (17:55)
== END 2024-04-22 18:40 | disposition home or self-care (01) ==
LOC: ER 14:54
DX: K29.70 Gastritis, unspecified, without bleeding (principal); J45.909 Unspecified asthma, uncomplicated; Z79.899 Other long term (current) drug therapy; Z88.6 Allergy status to analgesic agent
CPT/HCPCS: 36415; 80048; 80076; 81003; 84703; 85025; 99283

== ENCOUNTER 2024-04-28 03:21 | Emergency (ER) | payer MEDICAID ==
[~2024-04-28] VITALS: Ht 154.9 cm; Wt 76.0 kg
[~2024-04-28 03:21] MED LIST changes: +FAMO-135 MT; +MAG355OR21 MT
[2024-04-28 03:32] VITALS: O2SAT 100
[2024-04-28 03:52] LABS: CLARITY URINE CLEAR (CLEAR); COLOR URINE YELLOW (YELLOW); GLUCOSE URINE NEGATIVE (NEGATIVE); KETONES URINE NEGATIVE (NEGATIVE); LEUKOCYTE ESTERASE URINE NEGATIVE (NEGATIVE); NITRITE URINE NEGATIVE (NEGATIVE); OCCULT BLOOD URINE NEGATIVE (NEGATIVE); PH URINE 6.5 (4.5-8.0); PROTEIN URINE NEGATIVE (NEGATIVE); SPECIFIC GRAVITY URINE 1.005 (1.005-1.030); UROBILINOGEN URINE 0.2 E.U./dL (0.2-1.0)
[2024-04-28 03:59] LABS: BASOPHILS % 0.6 % (0.0-2.0); EOSINOPHILS % 2.1 % (0.0-5.0); HEMOGLOBIN. 13.4 g/dL (12.0-16.0); LYMPHOCYTES % 24.3 % (20.0-50.0); MEAN CORPUSCULAR HEMOGLOBIN 27.1 pg (28.0-32.0); MEAN CORPUSCULAR HGB CONC 33.5 g/dL (31.0-37.0); MEAN CORPUSCULAR VOLUME 80.8 fL (81.0-99.0); MONOCYTES % 6.6 % (2.0-8.0); NEUTROPHILS % 66.4 % (40.0-76.0); PLATELET 251 x1000/uL (130-400); RED BLOOD CELL COUNT 4.95 mill/uL (4.2-5.4); RED CELL DISTRIBUTION WIDTH 13.5 % (11.6-14.6)
[2024-04-28 04:05] LABS: CHLORIDE 107 mEq/L (98-107); POTASSIUM 3.6 mEq/L (3.5-5.1); SODIUM 139 mEq/L (136-145)
[2024-04-28 04:06] LABS: CALCIUM 9.5 mg/dL (8.7-10.4); CARBON DIOXIDE 26 mEq/L (21-32)
[2024-04-28 04:11] LABS: CREATININE 0.6 mg/dL (0.6-1.0); GLUCOSE 93 mg/dL (70-105)
[2024-04-28 04:12] LABS: UREA NITROGEN BLOOD 6 mg/dL (9-23)
[2024-04-28 04:13] LABS: ALANINE AMINOTRANSFERASE 38 IU/L (10-49); ALBUMIN 4.3 g/dL (3.2-4.8); ASPARTATE AMINOTRANSFERASE 26 IU/L (<34)
[2024-04-28 04:14] LABS: BILIRUBIN TOTAL 0.3 mg/dL (0.1-1.0); PROTEIN TOTAL 7.1 g/dL (6.0-8.3)
[2024-04-28 04:51] LABS: BILIRUBIN DIRECT < 0.1 mg/dL (<=3.0)
[2024-04-28] MEDS ORDERED: ACETAMINOPHEN 325MG TABLET PO ONE (05:00)
[2024-04-28] MEDS: ONDANSETRON HCL 4MG TABLET PO ONE (05:00)
[2024-04-28] MEDS ORDERED: OMEPRAZOLE 20MG CAPSULE EXTENDED RELEASE PO ONE (05:00)
[2024-04-28] MEDS ORDERED: MAGNESIUM/ALUMINUM HYDROXIDE/SIMETHICONE 30ML UDC PO ONE (05:00)
[2024-04-28] MEDS ORDERED: ONDANSETRON HCL 4MG TABLET PO NR (05:45)
[2024-04-28] MEDS: PANTOPRAZOLE 40MG DR TABLET PO NR (06:05)
[2024-04-28] MEDS: ACETAMINOPHEN 325MG TABLET PO NR (06:05)
[2024-04-28] MEDS: MAGNESIUM/ALUMINUM HYDROXIDE/SIMETHICONE 30ML UDC PO NR (06:06)
[2024-04-28] MEDS ORDERED: ACET-2708 MT (06:06)
[2024-04-28] MEDS ORDERED: MAG355OR21 MT (06:06)
[2024-04-28] MEDS ORDERED: OMEP40CA20 MT (06:06)
[2024-04-28] MEDS ORDERED: ONDA4TAB50 MT (06:06)
[2024-04-28 06:30] VITALS: BP 108/66; PULSE 75; RESP 18; TEMP 36.78072; O2SAT 100
== END 2024-04-28 06:30 | disposition home or self-care (01) ==
LOC: ER 03:21
DX: R10.10 Upper abdominal pain, unspecified (principal); J45.909 Unspecified asthma, uncomplicated; Z91.148 Patient's other noncompliance with medication regimen for other reason; Z00.00 Encounter for general adult medical examination without abnormal findings; Z79.899 Other long term (current) drug therapy; Z88.6 Allergy status to analgesic agent; Z88.8 Allergy status to other drugs, medicaments and biological substances; Z88.5 Allergy status to narcotic agent; Z98.890 Other specified postprocedural states
CPT/HCPCS: 36415; 76705; 80048; 80076; 81003; 81025; 85025; 99284; Q0162

== ENCOUNTER 2024-05-18 17:56 | Emergency (ER) | payer MEDICAID ==
[~2024-05-18] VITALS: Ht 154.9 cm; Wt 76.0 kg
[~2024-05-18 17:56] MED LIST changes: +OMEP40CA20 MT; +ONDA4TAB50 MT
[2024-05-18 18:06] VITALS: O2SAT 99
[2024-05-18] MEDS ORDERED: TOPUD MT (19:41)
[2024-05-18] MEDS ORDERED: OFLO5DRO4 EACH EAR (19:41)
[2024-05-18 19:52] VITALS: BP 112/68; PULSE 84; RESP 18; TEMP 37.11408; O2SAT 99
[2024-05-18 20:10] VITALS: TEMP 98.8
[2024-05-18] MEDS: ACETAMINOPHEN 500MG TABLET PO ONE (20:10)
== END 2024-05-18 20:12 | disposition home or self-care (01) ==
LOC: ER 17:56
DX: B34.9 Viral infection, unspecified (principal); J45.909 Unspecified asthma, uncomplicated; Z90.49 Acquired absence of other specified parts of digestive tract; Z88.6 Allergy status to analgesic agent; Z88.5 Allergy status to narcotic agent; Z88.1 Allergy status to other antibiotic agents; Z79.899 Other long term (current) drug therapy
CPT/HCPCS: 99283

== ENCOUNTER 2024-05-21 15:54 | Emergency (ER) | payer MEDICAID ==
[~2024-05-21] VITALS: Ht 154.9 cm; Wt 76.2 kg
[2024-05-21 16:11] VITALS: O2SAT 98
[2024-05-21] MEDS: ACETAMINOPHEN 325MG TABLET PO STA (21:21)
[2024-05-21] MEDS ORDERED: D-ME473S50 PO (22:22)
[2024-05-21] MEDS ORDERED: ALBU18HF2 IH (22:22)
[2024-05-21] MEDS ORDERED: AMOX-494 MT (22:22)
[2024-05-21] MEDS ORDERED: ACET-2708 PO (22:22)
[2024-05-21 23:00] VITALS: BP 122/71; PULSE 80; RESP 16; TEMP 37.00296; O2SAT 100
== END 2024-05-22 | disposition home or self-care (01) ==
LOC: ER 15:54
DX: H66.92 Otitis media, unspecified, left ear (principal); J20.9 Acute bronchitis, unspecified; J45.909 Unspecified asthma, uncomplicated; Z88.1 Allergy status to other antibiotic agents; Z88.5 Allergy status to narcotic agent; Z88.6 Allergy status to analgesic agent; Z79.899 Other long term (current) drug therapy; Z90.49 Acquired absence of other specified parts of digestive tract
CPT/HCPCS: 71045; 87070; 87430; 87804; 99284

== ENCOUNTER 2024-07-22 09:02 | Emergency (ER) | payer MEDICAID ==
[~2024-07-22] VITALS: Ht 157.5 cm; Wt 70.0 kg
[~2024-07-22 09:02] MED LIST changes: +ACET-2708 PO; +ALBU18HF2 IH; +D-ME473S50 PO
[2024-07-22 09:16] VITALS: BP 111/62; TEMP 98.4; O2SAT 95
[2024-07-22 09:20] VITALS: PULSE 69; RESP 18; O2SAT 96
[2024-07-22] MEDS ORDERED: ACETAMINOPHEN 325MG TABLET PO ONE (09:45)
== END 2024-07-22 13:03 | disposition home or self-care (01) ==
LOC: ER 09:02
DX: M54.12 Radiculopathy, cervical region (principal); E78.00 Pure hypercholesterolemia, unspecified; J45.909 Unspecified asthma, uncomplicated; Z88.6 Allergy status to analgesic agent; Z88.1 Allergy status to other antibiotic agents; Z88.5 Allergy status to narcotic agent; Z79.899 Other long term (current) drug therapy; Z90.49 Acquired absence of other specified parts of digestive tract
CPT/HCPCS: 99284

== ENCOUNTER 2024-07-28 09:43 | Emergency (ER) | payer MEDICAID ==
[~2024-07-28] VITALS: Ht 154.9 cm; Wt 77.0 kg
[2024-07-28 09:55] VITALS: BP 129/71; RESP 16; TEMP 98.6; O2SAT 99
[2024-07-28 09:59] VITALS: PULSE 83; O2SAT 99
[2024-07-28] MEDS ORDERED: FLUT9.9S BOTHNSTRLS (10:24)
[2024-07-28] MEDS ORDERED: NEOM10DR11 RIGHT EAR (10:24)
[2024-07-28] MEDS ORDERED: MECL-217 MT (10:24)
== END 2024-07-28 10:40 | disposition home or self-care (01) ==
LOC: ER 09:43
DX: H92.01 Otalgia, right ear (principal); R42 Dizziness and giddiness; R07.0 Pain in throat; E78.00 Pure hypercholesterolemia, unspecified; J45.909 Unspecified asthma, uncomplicated; Z88.5 Allergy status to narcotic agent; Z88.6 Allergy status to analgesic agent; Z88.1 Allergy status to other antibiotic agents; Z90.49 Acquired absence of other specified parts of digestive tract; Z79.899 Other long term (current) drug therapy
CPT/HCPCS: 99283

== ENCOUNTER 2024-08-30 23:51 | Emergency (ER) | payer MEDICAID ==
[~2024-08-30] VITALS: Ht 154.9 cm; Wt 76.0 kg
[~2024-08-30 23:51] MED LIST changes: +MECL-217 MT; +NEOM10DR11 RIGHT EAR
[2024-08-31 00:08] VITALS: BP 106/48; PULSE 72; RESP 16; TEMP 36.9; O2SAT 100
[2024-08-31 01:18] LABS: CHLORIDE 106 mEq/L (98-107); POTASSIUM 3.5 mEq/L (3.5-5.1); SODIUM 138 mEq/L (136-145)
[2024-08-31 01:19] LABS: CALCIUM 9.6 mg/dL (8.7-10.4); CARBON DIOXIDE 25 mEq/L (21-32)
[2024-08-31 01:21] LABS: BASOPHILS % 0.8 % (0.0-2.0); EOSINOPHILS % 1.9 % (0.0-5.0); HEMATOCRIT. 39.3 % (36.0-48.0); HEMOGLOBIN. 13.2 g/dL (12.0-16.0); LYMPHOCYTES % 28.6 % (20.0-50.0); MEAN CORPUSCULAR HEMOGLOBIN 27.2 pg (28.0-32.0); MEAN CORPUSCULAR HGB CONC 33.7 g/dL (31.0-37.0); MEAN CORPUSCULAR VOLUME 80.9 fL (81.0-99.0); MEAN PLATELET VOLUME 9.5 fl (7.4-10.4); MONOCYTES % 6.4 % (2.0-8.0); NEUTROPHILS % 62.3 % (40.0-76.0); PLATELET 250 x1000/uL (130-400); RED BLOOD CELL COUNT 4.86 mill/uL (4.2-5.4); RED CELL DISTRIBUTION WIDTH 13.9 % (11.6-14.6); WHITE BLOOD COUNT 9.5 x1000/uL (4.5-11.0)
[2024-08-31 01:24] LABS: CREATININE 0.6 mg/dL (0.6-1.0); GLUCOSE 90 mg/dL (70-105); UREA NITROGEN BLOOD 10 mg/dL (9-23)
[2024-08-31 01:26] LABS: ALANINE AMINOTRANSFERASE 25 IU/L (10-49); ALBUMIN 4.2 g/dL (3.2-4.8); ASPARTATE AMINOTRANSFERASE 19 IU/L (<34)
[2024-08-31 01:27] LABS: BILIRUBIN TOTAL 0.3 mg/dL (0.1-1.0); PROTEIN TOTAL 6.9 g/dL (6.0-8.3)
[2024-08-31 01:30] LABS: BILIRUBIN DIRECT < 0.1 mg/dL (<=3.0)
== END 2024-08-31 05:16 | disposition left against medical advice (07) ==
LOC: ER 23:51
DX: R10.9 Unspecified abdominal pain (principal); J45.909 Unspecified asthma, uncomplicated; K21.9 Gastro-esophageal reflux disease without esophagitis; E78.00 Pure hypercholesterolemia, unspecified; Z90.49 Acquired absence of other specified parts of digestive tract; Z53.21 Procedure and treatment not carried out due to patient leaving prior to being seen by health care provider
CPT/HCPCS: 36415; 80048; 80076; 85025

== ENCOUNTER 2024-09-02 18:42 | Emergency (ER) | payer MEDICAID ==
[~2024-09-02] VITALS: Ht 154.9 cm; Wt 79.0 kg
[2024-09-02 18:47] VITALS: TEMP 36.7; O2SAT 100
[2024-09-02 20:33] LABS: BASOPHILS % 0.5 % (0.0-2.0); EOSINOPHILS % 1.8 % (0.0-5.0); HEMATOCRIT. 40.9 % (36.0-48.0); HEMOGLOBIN. 13.6 g/dL (12.0-16.0); MEAN CORPUSCULAR HEMOGLOBIN 27.1 pg (28.0-32.0); MEAN CORPUSCULAR HGB CONC 33.3 g/dL (31.0-37.0); MEAN CORPUSCULAR VOLUME 81.5 fL (81.0-99.0); MEAN PLATELET VOLUME 9.2 fl (7.4-10.4); MONOCYTES % 5.6 % (2.0-8.0); NEUTROPHILS % 65.1 % (40.0-76.0); PLATELET 249 x1000/uL (130-400); RED BLOOD CELL COUNT 5.02 mill/uL (4.2-5.4); RED CELL DISTRIBUTION WIDTH 13.9 % (11.6-14.6); WHITE BLOOD COUNT 8.6 x1000/uL (4.5-11.0)
[2024-09-02 20:39] LABS: CHLORIDE 105 mEq/L (98-107); POTASSIUM 3.9 mEq/L (3.5-5.1); SODIUM 140 mEq/L (136-145)
[2024-09-02 20:40] LABS: CALCIUM 9.3 mg/dL (8.7-10.4); CARBON DIOXIDE 24 mEq/L (21-32)
[2024-09-02 20:45] LABS: CREATININE 0.6 mg/dL (0.6-1.0); GLUCOSE 97 mg/dL (70-105); HCG SCREEN NEGATIVE
[2024-09-02 20:46] LABS: UREA NITROGEN BLOOD 7 mg/dL (9-23)
[2024-09-02 20:47] LABS: ALANINE AMINOTRANSFERASE 24 IU/L (10-49); ALBUMIN 4.1 g/dL (3.2-4.8); ASPARTATE AMINOTRANSFERASE 20 IU/L (<34)
[2024-09-02 20:48] LABS: BILIRUBIN TOTAL 0.3 mg/dL (0.1-1.0); PROTEIN TOTAL 7.2 g/dL (6.0-8.3)
[2024-09-02 21:00] VITALS: TEMP 98.1
[2024-09-02 21:00] LABS: BILIRUBIN DIRECT < 0.1 mg/dL (<=3.0)
[2024-09-02] MEDS: ACETAMINOPHEN 325MG TABLET PO ONE (21:00)
[2024-09-02] MEDS: ONDANSETRON HCL 4MG TABLET PO ONE (21:00)
[2024-09-02 23:24] LABS: CLARITY URINE CLOUDY (CLEAR); COLOR URINE YELLOW (YELLOW); GLUCOSE URINE NEGATIVE (NEGATIVE); KETONES URINE NEGATIVE (NEGATIVE); LEUKOCYTE ESTERASE URINE 2+ (NEGATIVE); NITRITE URINE NEGATIVE (NEGATIVE); OCCULT BLOOD URINE NEGATIVE (NEGATIVE); PROTEIN URINE NEGATIVE (NEGATIVE); SPECIFIC GRAVITY URINE 1.022 (1.005-1.030); UROBILINOGEN URINE 0.2 E.U./dL (0.2-1.0)
[2024-09-02] MEDS ORDERED: MAG-135 MT (23:49)
[2024-09-02 23:57] LABS: SQUAMOUS EPITHELIAL CELL URINE 2+ /lpf (RARE/1+)
[2024-09-03] LABS: BACTERIA URINE 1+; RBC URINE 0-2 /hpf (0-2)
[2024-09-03 00:26] VITALS: BP 104/68; PULSE 67; RESP 16; O2SAT 98
[2024-09-03] MEDS: MAGNESIUM/ALUMINUM HYDROXIDE/SIMETHICONE 30ML UDC PO ONE (00:26)
== END 2024-09-03 00:28 | disposition home or self-care (01) ==
LOC: ER 18:42
DX: K21.9 Gastro-esophageal reflux disease without esophagitis (principal); K27.9 Peptic ulcer, site unspecified, unspecified as acute or chronic, without hemorrhage or perforation; E78.00 Pure hypercholesterolemia, unspecified; J45.909 Unspecified asthma, uncomplicated; Z79.899 Other long term (current) drug therapy; Z88.1 Allergy status to other antibiotic agents; Z88.5 Allergy status to narcotic agent; Z88.6 Allergy status to analgesic agent; Z90.49 Acquired absence of other specified parts of digestive tract
CPT/HCPCS: 99284; 76705; 80076; 80048; 81003; 84703; 83690; 85025; 87086; 36415; 76857; Q0162

== ENCOUNTER 2025-04-02 21:51 | Emergency (ER) | payer MEDICAID ==
[~2025-04-02] VITALS: Ht 154.9 cm; Wt 82.1 kg
[~2025-04-02 21:51] MED LIST changes: +MAG-135 MT; +NYST15CR31 PO; -NYST15CR37 PO
[2025-04-02 22:02] VITALS: O2SAT 99
[2025-04-02] MEDS ORDERED: NEOM10SO7 EACH EAR (23:02)
[2025-04-02 23:20] VITALS: BP 103/73; PULSE 78; RESP 15; TEMP 36.7; O2SAT 98
== END 2025-04-02 23:22 | disposition home or self-care (01) ==
LOC: ER 21:51
DX: H60.93 Unspecified otitis externa, bilateral (principal); E78.00 Pure hypercholesterolemia, unspecified; J45.909 Unspecified asthma, uncomplicated; Z79.899 Other long term (current) drug therapy; Z90.49 Acquired absence of other specified parts of digestive tract; Z88.6 Allergy status to analgesic agent; Z88.5 Allergy status to narcotic agent; Z88.1 Allergy status to other antibiotic agents
CPT/HCPCS: 99282; 99283

== ENCOUNTER 2025-04-12 22:17 | Emergency (ER) | payer MEDICAID ==
[~2025-04-12] VITALS: Ht 154.9 cm; Wt 80.0 kg
[~2025-04-12 22:17] MED LIST changes: +NEOM10SO7 EACH EAR
[2025-04-12 22:22] VITALS: O2SAT 100
[2025-04-12 23:00] LABS: CLARITY URINE CLEAR (CLEAR); COLOR URINE YELLOW (YELLOW); GLUCOSE URINE NEGATIVE (NEGATIVE); KETONES URINE TRACE (NEGATIVE); LEUKOCYTE ESTERASE URINE NEGATIVE (NEGATIVE); NITRITE URINE NEGATIVE (NEGATIVE); OCCULT BLOOD URINE NEGATIVE (NEGATIVE); PH URINE 6.5 (4.5-8.0); PROTEIN URINE NEGATIVE (NEGATIVE); SPECIFIC GRAVITY URINE 1.025 (1.005-1.030); UROBILINOGEN URINE 0.2 E.U./dL (0.2-1.0)
[2025-04-12 23:56] LABS: BASOPHILS % 1.0 % (0.0-2.0); EOSINOPHILS % 2.2 % (0.0-5.0); HEMATOCRIT. 38.8 % (36.0-48.0); HEMOGLOBIN. 12.9 g/dL (12.0-16.0); LYMPHOCYTES % 31.1 % (20.0-50.0); MEAN PLATELET VOLUME 9.0 fl (7.4-10.4); MONOCYTES % 6.7 % (2.0-8.0); NEUTROPHILS % 59.0 % (40.0-76.0); PLATELET 258 x1000/uL (130-400); RED BLOOD CELL COUNT 4.86 mill/uL (4.2-5.4); RED CELL DISTRIBUTION WIDTH 13.9 % (11.6-14.6)
[2025-04-13 00:09] LABS: CREATININE 0.7 mg/dL (0.6-1.0)
[2025-04-13 00:10] LABS: TROPONIN I HIGH SENSITIVITY < 4 ng/L (3.0-34); UREA NITROGEN BLOOD 5 mg/dL (9-23)
[2025-04-13 00:47] VITALS: BP 108/58; PULSE 57; RESP 16; TEMP 36.8; O2SAT 100
== END 2025-04-13 01:01 | disposition home or self-care (01) ==
LOC: ER 22:17
DX: R07.89 Other chest pain (principal); E78.00 Pure hypercholesterolemia, unspecified; J45.909 Unspecified asthma, uncomplicated; Z79.899 Other long term (current) drug therapy; Z87.19 Personal history of other diseases of the digestive system; Z88.1 Allergy status to other antibiotic agents; Z88.5 Allergy status to narcotic agent; Z88.6 Allergy status to analgesic agent; Z90.49 Acquired absence of other specified parts of digestive tract
CPT/HCPCS: 36415; 71045; 80048; 81003; 81025; 84484; 85025; 93005; 99285

== ENCOUNTER 2025-04-23 06:49 | Emergency (ER) | payer MEDICAID ==
[~2025-04-23] VITALS: Ht 154.9 cm; Wt 82.0 kg
[2025-04-23 06:55] VITALS: O2SAT 100
[2025-04-23] MEDS: SODIUM CHLORIDE 0.9% 1,000 ML IV ONE (08:00)
[2025-04-23] MEDS: ONDANSETRON HCL 4MG/2ML INJ IV ONE (08:00)
[2025-04-23 08:10] LABS: BASOPHILS % 0.9 % (0.0-2.0); EOSINOPHILS % 2.5 % (0.0-5.0); HEMATOCRIT. 41.0 % (36.0-48.0); HEMOGLOBIN. 13.6 g/dL (12.0-16.0); LYMPHOCYTES % 25.5 % (20.0-50.0); MEAN PLATELET VOLUME 9.2 fl (7.4-10.4); MONOCYTES % 6.9 % (2.0-8.0); NEUTROPHILS % 64.2 % (40.0-76.0); PLATELET 270 x1000/uL (130-400); RED BLOOD CELL COUNT 5.15 mill/uL (4.2-5.4); RED CELL DISTRIBUTION WIDTH 14.4 % (11.6-14.6)
[2025-04-23 08:28] LABS: HCG SCREEN NEGATIVE
[2025-04-23 08:29] LABS: CREATININE 0.5 mg/dL (0.6-1.0); UREA NITROGEN BLOOD 5 mg/dL (9-23)
[2025-04-23 08:31] LABS: ASPARTATE AMINOTRANSFERASE 23 IU/L (<34); BILIRUBIN DIRECT < 0.1 mg/dL (<=3.0)
[2025-04-23 08:32] LABS: BILIRUBIN TOTAL 0.3 mg/dL (0.1-1.0); PROTEIN TOTAL 7.2 g/dL (6.0-8.3)
[2025-04-23] MEDS: ACETAMINOPHEN 500MG TABLET PO ONE (09:05)
[2025-04-23] MEDS ORDERED: MECL-217 MT (09:24)
[2025-04-23] MEDS ORDERED: TOPUD MT (09:24)
[2025-04-23 09:36] VITALS: BP 108/55; PULSE 64; RESP 16; TEMP 36.8; O2SAT 99
== END 2025-04-23 09:40 | disposition home or self-care (01) ==
LOC: ER 06:49
DX: R42 Dizziness and giddiness (principal); R53.1 Weakness; J45.909 Unspecified asthma, uncomplicated; Z90.49 Acquired absence of other specified parts of digestive tract; Z79.899 Other long term (current) drug therapy; Z88.6 Allergy status to analgesic agent; Z88.5 Allergy status to narcotic agent; Z88.1 Allergy status to other antibiotic agents
CPT/HCPCS: 80076; 80048; 84703; 83690; 85025; 36415; 99283; J2405; J7030; Z7610